=== PATIENT | female | born 1950 | race Caucasian/White ===

== ENCOUNTER → 2018-01-15 | Outpatient (CLI) | payer MEDICARE | END | disposition home or self-care (01) | LOC: LABWHC1 16:34 | PROVIDERS: ATTEND Orthopaedic Surgery | DX: Z01.812 Encounter for preprocedural laboratory examination (principal) | CPT/HCPCS: 87070 ==

== ENCOUNTER → 2018-01-22 | Outpatient (CLI) | payer MEDICARE ==
[2018-01-22 10:00] LABS: INR 1.1 (<1.2); Partial Thromboplastin Time 23.5 sec (22.0-30.0); Prothrombin Time 10.4 sec (9.0-12.0)
== END | disposition home or self-care (01) ==
LOC: LABPAT 08:49
PROVIDERS: ATTEND Orthopaedic Surgery
DX: Z01.812 Encounter for preprocedural laboratory examination (principal)
CPT/HCPCS: 36415; 85610; 85730

== ENCOUNTER → 2018-01-23 | Outpatient (CLI) | payer MEDICARE ==
[2018-01-23 10:13] LABS: Appearance,Urine Clear (Clear); Bilirubin,Urine Negative (Negative); Blood,Urine Negative (Negative); Calcium Oxalate Crystals,Urine Few /hpf; Color,Urine Yellow; Glucose,Urine (UA) Negative (Negative); Ketones,Urine Negative (Negative); Leukocyte Esterase,Urine Moderate (Negative); Mucus,Urine Rare /hpf; Nitrite,Urine Negative (Negative); PH, Urine 5.5 (5.0-8.0); Protein,Urine Negative (Negative); Specific Gravity,Urine 1.015 (1.001-1.035); Squamous Epithelial Cell,Urine 1 /hpf (0-4); Urobilinogen,Urine <2.0 mg/dL (<2.0); WBC,Urine 18 /hpf (0-5)
== END | disposition home or self-care (01) ==
LOC: LABPAT 09:33
PROVIDERS: ATTEND Orthopaedic Surgery
DX: Z01.812 Encounter for preprocedural laboratory examination (principal)
CPT/HCPCS: 81001

== ENCOUNTER 2018-02-02 05:56 | Inpatient (IN) | payer MEDICARE ==
[2018-01-28 09:05] VITALS: BMI 24.7
[~2018-02-02 05:56] MED LIST: ACETAMINOPHEN TAB 500 MG TAB PO ONE; DEXAMETHASONE SOD PHOSPHATE 10 MG/ML 1 ML VIAL IV ONE; HYDROmorphone 0.5 MG/0.5 ML SYRINGE IVP PRN; MELOXICAM 7.5 MG TAB PO ONE; ONDANSETRON 4 MG/2 ML VIAL IVP ONE; TRANEXAMIC ACID 1,000 MG in SODIUM CHLORIDE 0.9% 50 ML IVPB ONE; ceFAZolin IN SWFI 2 GM/20 ML SYRINGE IVP ONE
[2018-02-02] MEDS ORDERED: ROPIVACAINE 246.25 MG, EPINEPHrine 0.5 MG, KETOROLAC 30 MG, cloNIDine HCL/PF 80 MCG, WA... MISCELLANE ONE ×5 (06:24)
[2018-02-02] MEDS: LACTATED RINGERS 1,000 ML IV SCH (06:26)
[2018-02-02] MEDS ORDERED: LIDOCAINE 1% 20 ML VIAL (10MG/ML) FOR IV START INTRADERMA ONE (06:27)
[2018-02-02] MEDS ORDERED: DIAZEPAM 5 MG TAB PO PRN ×2 (07:19)
[2018-02-02] MEDS ORDERED: NALOXONE 0.4 MG/ML 1 ML VIAL IV PRN (07:19)
[2018-02-02] MEDS ORDERED: ONDANSETRON 4 MG/2 ML VIAL IVP PRN (07:19)
[2018-02-02] MEDS ORDERED: hydrOXYzine PAMOATE 25 MG CAP PO PRN (07:19)
[2018-02-02] MEDS ORDERED: HYDROmorphone 0.5 MG/0.5 ML SYRINGE IVP PRN ×3 (07:19)
[2018-02-02] MEDS ORDERED: MAGNESIUM HYDROXIDE 2,400 MG/10 ML CUP PO PRN (07:19)
[2018-02-02] MEDS ORDERED: HYDROcodone/APAP 5-325MG 1 EACH TAB PO PRN ×2 (07:19)
[2018-02-02] MEDS ORDERED: LACTATED RINGERS 1,000 ML BAG IV ONE (07:31)
[2018-02-02] MEDS ORDERED: SODIUM CHLORIDE 0.9% 100 ML BAG ONE (07:31)
[2018-02-02] MEDS ORDERED: fentaNYL (PF) 50 MCG/ML 2 ML AMP ONE (07:31)
[2018-02-02] MEDS ORDERED: MIDAZOLAM 2 MG/2 ML VIAL ONE (07:31)
[2018-02-02] MEDS ORDERED: HEPARIN SODIUM,PORCINE 10,000 UNIT/ML 1 ML VIAL ONE (07:31)
[2018-02-02] MEDS ORDERED: TRANEXAMIC ACID 1,000 MG/10 ML VIAL ONE (07:31)
[2018-02-02] MEDS ORDERED: ceFAZolin 3,000 MG in SODIUM CHLORIDE 0.9% IRRIGATIO 3,000 ML IRRIGATION ONE (08:10)
[2018-02-02] MEDS ORDERED: LACTATED RINGERS 1,000 ML IV ONE (08:30)
--- NOTE | 2018-02-02 09:00 | P.OP ---
Date of Procedure: 02/02/18 Preoperative Diagnosis: Severe osteoarthritis right hip Postoperative Diagnosis: Severe osteoarthritis right hip Procedure(s) Performed: Right total hip arthroplasty with a direct anterior approach Implants: Kaba and nephew Polarstem size 1 standard Kaba [employer] Nephew R3, 3 hole acetabular shell, 48 mm Kaba [employer] Nephew reflection 6.5 mm cancellus screw, 20 mm 2 Kaba [employer] Nephew R3, XLPE 20 acetabular liner Kaba [employer] Nephew Oxinium femoral head 32 m, +0 All components were press-fit. The articulation is Oxinium on polyethylene. Anesthesia: spinal Surgeon: Enrique Johnston Reactor Kettle Operator #1: Karlee Puga Estimated Blood Loss (ml): 100 Pathology: other (femoral head) Condition: stable Disposition: PACU Indications for Procedure: After failure of conservative treatment we discussed the surgical and nonsurgical treatment options at length. Patient wishes to proceed with a total hip arthroplasty with a direct anterior approach. Complications specific to this procedure were discussed at length, including but not limited to infection, leg length discrepancy, dislocation, and nerve injury. Patient is aware of all these complications and informed consent was obtained Operative Findings: The operative findings are consistent with severe osteoarthritis of the right hip Description of Procedure: Patient was seen and evaluated in the preoperative area, consent was reviewed, and the surgical site was marked with a skin marker. Patient was then brought to the operating room and given prophylactic antibiotics intravenously. 1 g of Tranexamic acid was also given. A spinal anesthetic was administered by the anesthesia department. The patient was then placed on the Stockett table with the bony prominences well-padded. The hip area was then prepped and draped in usual sterile fashion. A universal timeout was then performed, which confirmed the patient's name, surgical site, ALLERGIES, and procedure being performed. Next the incision site was located at 1 cm distal and 1 cm lateral to the anterior superior iliac spine. The skin and subcutaneous tissues were sharply incised. Incision was carefully dissected down to the fascia overlying the tensor fascia zeferino muscle. This fascia was then incised in line with the incision. Next, using blunt finger dissection, the tensor fascia zeferino muscle was dissected off its investing fascia. The muscle was then carefully retracted laterally with a cobra retractor over the lateral neck of the femur. Next, the circumflex vessels were identified and cauterized using the AquaMantis device. The anterior hip capsule was then exposed. The capsule was then opened and an inverted T fashion. Cobra retractors were then placed intracapsularly. The proximal femur was then visualized. The femoral neck was then osteotomized appropriate level above the lesser trochanter. Small amount of traction was placed with the Stockett table. A small wedge of bone was then removed from the remaining femoral head. Next, using a corkscrew femoral head was easily removed from the acetabulum. On gross visual inspection, the femoral head had complete loss of articular cartilage in multiple periarticular osteophytes. Attention was then turned to the acetabulum. the acetabulum was exposed and any remaining labrum was excised. Sequential reaming of the acetabulum was performed using fluoroscopic guidance. When the appropriate size was reached, a trial was then placed. The position and fit of the trial was checked with fluoroscopy. The trial was then removed. Then, using fluoroscopic guidance, the final implant was impacted at 20 of anteversion and 40 of abduction, and fully seated in the acetabulum. 2 screws were then placed in the acetabulum. Again fluoroscopy was used to check position of the screws. Next, the liner was then impacted, with a 20 elevated liner located in the anterior superior quadrant. Component locking was confirmed. Attention was then directed to the femur. With the aid of the Stockett table, the femur was externally rotated to approximately 130, extended, and abducted under the opposite leg. A side hook was then placed under the proximal femur, and the side hook elevator was used to elevate the proximal femur. Retractors were then placed. A capsular release was performed, as well as a release of the conjoined tendon, which afforded excellent visualization of the proximal femur. Next, a box osteotome was used to lateralize the proximal femur. A rounder hand was then used to locate the femoral canal. Sequential broaching was then performed with appropriate size which afforded excellent fixation in the proximal femur. A trial was then placed with appropriate head and neck, and the hip was gently reduced with the aid of the Stockett table. Fluoroscopy was then used to check position of the components, as well as to ensure equal leg lengths. The hip was then gently dislocated and the trials were then removed. Final implants were then impacted and the hip was again reduced. Final fluoroscopic x-rays confirmed that the components were in anatomic position, as well as equal leg lengths. The hip was also taken through range of motion, and found to be stable. The hip was then copiously irrigated with antibiotic solution with pulsatile lavage. The hip was then irrigated with Irrisept solution. The soft tissues were then injected with a ropivacaine solution, which consisted of 246.25 mg of ropivacaine, 0.5 mg of epinephrine, 30 mg of Toradol, 80 g of clonidine, and 48.45 mL of sterile water, for a total of 100 mL of fluid injected. A second dose of 1 g of Tranexamic acid was also given. the fascia was then closed with 2-0 strata fix suture. The subcutaneous tissue was closed with 3-0 Vicryl. The subcuticular tissue was closed with 3-0 strata fix suture. The skin was then closed with Dermabond glue and a sterile silver dressing. The patient was then transferred to the recovery room in stable condition. The loan officer assistant JUSTINA Brooks was required due to the complexity of surgery, and the need for skilled surgical services manager for positioning, draping, exposure, retraction, and closure of the wound.
--- NOTE | 2018-02-02 09:34 | FL ---
EXAMINATION TYPE: FL guidance operating room, XR Hip Limited RT DATE OF EXAM: 02/02/2018 COMPARISON: NONE HISTORY: 67 year-old female right hip anterior placement FINDINGS: Intraoperative fluoroscopy during a total right hip thoracoplasty. Fluoroscopy time of 56 seconds was used during anterior right hip replacement. 2 image/s document/s the procedure. IMPRESSION: Intraoperative fluoroscopy as above.
--- NOTE | 2018-02-02 12:02 | P.CONS ---
History of Present Illness - Reason for Consult Recommendations regarding anti-hypertensive medications - History of Present Illness 67-year-old pleasant female admitted for right hip arthroplasty patient successfully underwent surgery did not pass gas yet patient is postoperative day 0. Patient denied any significant pain in the hip area patient is on atenolol at home. Patient did take her medication today patient is bit hypotensive. Patient is also sinus bradycardic mildly asymptomatic at this time. Ideally if blood pressure is okay patient will benefit from beta munir since her heart rate is low normal and low blood pressure I do not believe even beta munir is recommended at this time atenolol will be held and patient will be monitored. Patient is otherwise clinically doing well denied any dysuria denied any cough runny nose. Review of Systems REVIEW OF SYSTEMS: CONSTITUTIONAL: No fever, no malaise, no fatigue. HEENT: No recent visual problems or hearing problems. Denied any sore throat. CARDIOVASCULAR: No chest pain, orthopnea, PND, no palpitations, no syncope. PULMONARY: No shortness of breath, no cough, no hemoptysis. GASTROINTESTINAL: No diarrhea, no nausea, no vomiting, no abdominal pain. Normoactive bowel sounds. NEUROLOGICAL: No headaches, no weakness, no numbness. HEMATOLOGICAL: Denies any bleeding or petechiae. GENITOURINARY: Denies any burning micturition, frequency, or urgency. MUSCULOSKELETAL/RHEUMATOLOGICAL: Denies any joint pain, swelling, or any muscle pain. ENDOCRINE: Denies any polyuria or polydipsia. The rest of the 14-point review of systems is negative. Past Medical History Past Medical History: Hypertension Additional Past Medical History / Comment(s): hx kidney stones, USING CRUTCHES TO WALK, STATES "MY HIP POPS OUT ANYTIME I SIT" History of Any Multi-Drug Resistant Organisms: None Reported Past Surgical History: Tubal Ligation Additional Past Surgical History / Comment(s): rectal spincterectomy Past Anesthesia/Blood Transfusion Reactions: No Reported Reaction Additional Psychological History / Comment(s): occas. difficulty falling asleep uses Xanax for Smoking Status: Never smoker Past Alcohol Use History: Occasional Past Drug Use History: None Reported - Past Family History Mother Family Medical History: No Reported History Medications and Allergies Home Medications Medication Instructions Recorded Confirmed Type ALPRAZolam [Xanax] 0.25 mg PO Q8HR PRN 01/28/18 02/02/18 History Acetaminophen-Codeine 300-30mg 1 - 2 tab PO Q4-6H PRN 01/28/18 02/02/18 History [Tylenol w/codeine #3] Atenolol 25 mg PO QAM 01/28/18 02/02/18 History Multivit-Min/Iron/Folic/Lutein 1 tab PO DAILY 01/28/18 02/02/18 History [Centrum Silver Women Tablet] Allergies Allergy/AdvReac Type Severity Reaction Status Date / Time hydrocodone [From Vicodin] AdvReac Severe Nausea & Verified 02/02/18 08:56 Vomiting Physical Exam Vitals: Vital Signs Temp Pulse Resp BP Pulse Ox 02/02/18 10:00 53 L 18 101/55 99 02/02/18 09:46 56 L 18 96/56 99 02/02/18 09:31 58 L 18 105/58 97 02/02/18 09:15 58 L 13 103/59 97 02/02/18 09:11 97.6 F 59 L 13 101/56 97 02/02/18 06:19 97.4 F L 57 L 16 120/58 98 Intake and Output 02/01/18 02/02/18 02/02/18 22:59 06:59 14:59 Intake Total 150 1251 Output Total 100 Balance 150 1151 Intake: IV 150 1251 Output: Estimated Blood Loss 100 Other: Weight 71.668 kg PHYSICAL EXAMINATION: GENERAL: The patient is alert and oriented x3, not in any acute distress. Well developed, well nourished. HEENT: Pupils are round and equally reacting to light. EOMI. No scleral icterus. No conjunctival pallor. Normocephalic, atraumatic. No pharyngeal erythema. No thyromegaly. CARDIOVASCULAR: S1 and S2 present. No murmurs, rubs, or gallops. PULMONARY: Chest is clear to auscultation, no wheezing or crackles. ABDOMEN: Soft, nontender, nondistended, normoactive bowel sounds. No palpable organomegaly. MUSCULOSKELETAL: No joint swelling or deformity. EXTREMITIES: Deferred to orthopedic surgery NEUROLOGICAL: Gross neurological examination did not reveal any focal deficits. SKIN: No rashes. Assessment and Plan Plan: -Hypertension: Management as mentioned above hold off on antidepressant medications because of above-mentioned reasons patient does have expected perioperative hypotension -Right hip arthroplasty: Pain management and DVT prophylaxis as per primary service -Mild sinus bradycardia with asymptomatic secondary to atenolol Anxiety disorder
[2018-02-02] MEDS: ceFAZolin IN SWFI 2 GM/20 ML SYRINGE IVP SCH ×2 (15:36→23:14)
[2018-02-02] MEDS: SODIUM CHLORIDE 0.9% 1,000 ML IV SCH (17:50)
[2018-02-02] MEDS ORDERED: traMADol 50 MG TAB PO PRN (18:38)
[2018-02-02] MEDS: SENNOSIDES-DOCUSATE SODIUM 1 EACH TAB PO SCH (21:04)
[2018-02-02] MEDS: ASPIRIN 325 MG TAB PO SCH (21:04)
[2018-02-03] MEDS: SODIUM CHLORIDE 0.9% 1,000 ML IV SCH ×2 (01:30→15:34)
[2018-02-03] MEDS: LACTATED RINGERS 1,000 ML IV SCH (01:32)
[2018-02-03 07:43] LABS: Basophils % (A) 0 %; Eosinophils % (A) 0 %; HCT 33.4 % (34.0-46.0); HGB 11.1 gm/dL (11.4-16.0); Lymphocytes # (A) 1.5 k/uL (1.0-4.8); Lymphocytes % (A) 14 %; MCH 29.8 pg (25.0-35.0); MCHC 33.2 g/dL (31.0-37.0); MCV 89.8 fL (80.0-100.0); Mean Platelet Volume 6.9; Monocytes # (A) 0.6 k/uL (0-1.0); Monocytes % (A) 5 %; Neutrophils # (A) 8.6 k/uL (1.3-7.7); Neutrophils % (A) 80 %; Platelet Count 218 k/uL (150-450); RBC 3.72 m/uL (3.80-5.40); WBC 10.9 k/uL (3.8-10.6)
[2018-02-03] MEDS: ASPIRIN 325 MG TAB PO SCH ×2 (09:01→21:35)
[2018-02-03] MEDS: MELOXICAM 7.5 MG TAB PO SCH (09:01)
--- NOTE | 2018-02-03 09:25 | P.PN ---
Subjective Progress Note Date: 02/03/18 This is a 67-year-old female who is status post right total hip arthroplasty. This is postoperative day #1. Patient is seen and evaluated at bedside with Dr. Enrique Johnston. Patient states that her pain is under control today. Patient does complain of numbness and weakness to the right lower extremity. Patient states that she has been up and walking, but she cannot put weight on the right lower extremity. Patient denies any history of back surgery. Patient denies any fever/chills, abdominal pain, shortness of breath or chest pain. Objective - Vital Signs Vital signs: Vital Signs Temp 97.9 F 02/03/18 07:20 Pulse 66 02/03/18 07:20 Resp 16 02/03/18 07:20 BP 139/70 02/03/18 07:20 Pulse Ox 99 02/03/18 07:20 Intake & Output 02/02/18 02/03/18 02/03/18 18:59 06:59 18:59 Intake Total 1646 650 Output Total 700 Balance 946 650 Weight 71.668 kg Intake: IV 1251 Intake, IV Titration 195 650 Amount Sodium Chloride 0.9% 1, 195 650 000 ml @ 65 mls/hr IV . [id number] [facility] Rx#:[id number] Oral 200 Output: Urine 600 Estimated Blood Loss 100 Other: Voiding Method Bedside Commode # Voids 1 - Exam Vital signs are stable. Patient is in no acute distress and is alert and oriented 3. Calf is soft and nontender to palpation. Dressing is clean, dry, and intact. Patient has numbness in the first dorsal webspace of the right foot. Patient can sense pressure when palpating the remainder of the right foot. Patient has weakness with dorsiflexion of the right foot and weakness of EHL. Patient is able to extend and flex the right knee and hip. Neurovascular status and circulatory status are intact. - Labs CBC & Chem 7: 02/03/18 07:08 Labs: Abnormal Lab Results - Last 24 Hours (Table) 02/03/18 Range/Units 07:08 WBC 10.9 H (3.8-10.6) k/uL RBC 3.72 L (3.80-5.40) m/uL Hgb 11.1 L (11.4-16.0) gm/dL Hct 33.4 L (34.0-46.0) % Neutrophils # 8.6 H (1.3-7.7) k/uL Assessment and Plan (1) Primary osteoarthritis of right hip Current Visit: Yes Status: Acute Code(s): M16.11 - UNILATERAL PRIMARY OSTEOARTHRITIS, RIGHT HIP SNOMED Code(s): 724436810 (2) S/P total hip arthroplasty Current Visit: Yes Status: Acute Code(s): Z96.649 - PRESENCE OF UNSPECIFIED ARTIFICIAL HIP JOINT SNOMED Code(s): 058110138503 (3) Foot drop, right Current Visit: Yes Status: Acute Code(s): M21.371 - FOOT DROP, RIGHT FOOT SNOMED Code(s): 2916966 Plan: Continue routine postop care. Continue antocoagulation. Weightbearing as tolerated with a walker. Will closely monitor symptoms of foot drop. Patient is to work on range of motion of the right foot and ankle. Leave dressing in place for 10 days. Possible discharge home in the next 1-2 days.
--- NOTE | 2018-02-03 12:59 | P.PN ---
Subjective Patient is still having some pain in the right knee. It doesn't look like patient will require atenolol upon discharge her blood pressure and heart rate is well controlled at this point of time and recommend to discontinue this medication until patient was evaluated by PCP. Patient has mild leukocytosis reactive in nature from surgery. Constitutional: Denied any fatigue denied any fever. Cardio vascular: denied any chest pain, palpitations Gastrointestinal denied any nausea vomiting Pulmonary: Denied any shortness of breath cough Neurologic denied any new focal deficits Objective - Vital Signs Vital signs: Vital Signs Temp 97.9 F 02/03/18 07:20 Pulse 66 02/03/18 07:20 Resp 16 02/03/18 07:20 BP 139/70 02/03/18 07:20 Pulse Ox 99 02/03/18 07:20 Intake & Output 02/02/18 02/03/18 02/03/18 18:59 06:59 18:59 Intake Total 1646 650 Output Total 700 Balance 946 650 Weight 71.668 kg Intake: IV 1251 Intake, IV Titration 195 650 Amount Sodium Chloride 0.9% 1, 195 650 000 ml @ 65 mls/hr IV . [id number] [facility] Rx#:[id number] Oral 200 Output: Urine 600 Estimated Blood Loss 100 Other: Voiding Method Bedside Commode # Voids 1 - Exam PHYSICAL EXAMINATION: GENERAL: The patient is alert and oriented x3, not in any acute distress. Well developed, well nourished. HEENT: Pupils are round and equally reacting to light. EOMI. No scleral icterus. No conjunctival pallor. Normocephalic, atraumatic. No pharyngeal erythema. No thyromegaly. CARDIOVASCULAR: S1 and S2 present. No murmurs, rubs, or gallops. PULMONARY: Chest is clear to auscultation, no wheezing or crackles. ABDOMEN: Soft, nontender, nondistended, normoactive bowel sounds. No palpable organomegaly. MUSCULOSKELETAL: No joint swelling or deformity. EXTREMITIES: Deferred to orthopedic surgery NEUROLOGICAL: Gross neurological examination did not reveal any focal deficits. SKIN: No rashes. - Labs CBC & Chem 7: 02/03/18 07:08 Labs: Abnormal Lab Results - Last 24 Hours (Table) 02/03/18 Range/Units 07:08 WBC 10.9 H (3.8-10.6) k/uL RBC 3.72 L (3.80-5.40) m/uL Hgb 11.1 L (11.4-16.0) gm/dL Hct 33.4 L (34.0-46.0) % Neutrophils # 8.6 H (1.3-7.7) k/uL Assessment and Plan Plan: -Hypertension: Patient may not require atenolol upon discharge. -Leukocytosis reactive in nature without any signs or symptoms of infection -Right hip arthroplasty: Pain management and DVT prophylaxis as per primary service -Mild sinus bradycardia with asymptomatic secondary to atenolol Anxiety disorder
[2018-02-03] MEDS: predniSONE 20 MG TAB PO SCH (15:36)
[2018-02-03 17:10] LABS: Glucose,Whole Blood 189 mg/dL (75-99)
[2018-02-03] MEDS ORDERED: ACETAMINOPHEN TAB 325 MG TAB PO PRN (19:23)
[2018-02-03 20:18] LABS: Glucose,Whole Blood 258 mg/dL (75-99)
[2018-02-03] MEDS ORDERED: INSULIN ASPART 100 UNIT/ML 1 ML 10 ML VIAL SQ STA (21:29)
[2018-02-03] MEDS: INSULIN ASPART 100 UNIT/ML 1 ML 10 ML VIAL SQ SCH (21:32)
[2018-02-03] MEDS: SENNOSIDES-DOCUSATE SODIUM 1 EACH TAB PO SCH (21:33)
[2018-02-03 23:31] LABS: Glucose,Whole Blood 238 mg/dL (75-99)
[2018-02-04 01:53] VITALS: RESP 16; TEMP 98.1
[2018-02-04 02:10] LABS: Hemoglobin A1C 6.6 % (4.0-6.0)
[2018-02-04] MEDS: LACTATED RINGERS 1,000 ML IV SCH (04:41)
[2018-02-04] MEDS: SODIUM CHLORIDE 0.9% 1,000 ML IV SCH (04:42)
[2018-02-04 07:03] LABS: Glucose,Whole Blood 163 mg/dL (75-99)
[2018-02-04 07:14] VITALS: BP 138/80; PULSE 80
[2018-02-04] MEDS: INSULIN ASPART 100 UNIT/ML 1 ML 10 ML VIAL SQ SCH ×2 (08:04→13:23)
[2018-02-04] MEDS: predniSONE 20 MG TAB PO SCH (08:05)
[2018-02-04] MEDS: MELOXICAM 7.5 MG TAB PO SCH (08:05)
[2018-02-04] MEDS: ASPIRIN 325 MG TAB PO SCH (08:05)
--- NOTE | 2018-02-04 08:32 | P.DS ---
Providers Date of admission: 02/02/18 05:56 Expected date of discharge: 02/04/18 Attending physician: Enrique Johnston Consults: 02/02/18 07:19 Consult Physician Routine Consulting Provider: Shimon Najera Consult Reason/Comments: medical management Do you want consulting provider notified?: Yes 02/02/18 09:23 Consult Physician Routine Consulting Provider: Trace Temple Consult Reason/Comments: medical management Do you want consulting provider notified?: Yes Primary care physician: Shimon Najera - Discharge Diagnosis(es) (1) Primary osteoarthritis of right hip Current Visit: Yes Status: Acute (2) S/P total hip arthroplasty Current Visit: Yes Status: Acute (3) Foot drop, right Current Visit: Yes Status: Acute Hospital Course: This is a 67-year-old female with known history of degenerative arthritis of the right hip. The patient presents for evaluation. After discussion and consideration patient elects to proceed with total hip arthroplasty. The patient is seen preoperatively by Dr. Johnston and medically cleared for surgery by their primary care physician. Patient is admitted to [facility] on 02/02/2018 for total hip arthroplasty. The procedures performed without complication. Patient did develop symptoms of foot drop postoperatively and this is being treated with an AFO and physical therapy. Otherwise, the patient is doing well postoperatively. Labs and vital signs are stable on day of discharge. On day of discharge patient's hip incision is healing well. There is minimal erythema. There is no drainage noted at this time. There is minimal soft tissue swelling to the hip and thigh. Patient has weakness with plantar flexion of the right foot and EHL. Patient is able to flex and extend at the right hip and right knee joints.. Patient has some decreased sensation to the right first dorsal webspace. Otherwise, neurovascular status to the right lower extremity is intact. Patient is discharged home in good condition. Please see med rec for accurate list of home medications. Plan - Discharge Summary Discharge Rx Participant: No New Discharge Prescriptions: New Aspirin 325 mg PO BID #60 tab Sennosides [Senokot] 1 tab PO BID #60 tablet traMADol HCl [Ultram] 50 mg PO Q6H PRN #60 tab PRN Reason: Pain predniSONE 20 mg PO DAILY 10 Days #18 tab Discontinued Atenolol 25 mg PO QAM No Action Acetaminophen-Codeine 300-30mg [Tylenol w/codeine #3] 1 - 2 tab PO Q4-6H PRN PRN Reason: Pain ALPRAZolam [Xanax] 0.25 mg PO Q8HR PRN PRN Reason: anxiety/sleep Multivit-Min/Iron/Folic/Lutein [Centrum Silver Women Tablet] 1 tab PO DAILY Discharge Medication List ALPRAZolam [Xanax] 0.25 mg PO Q8HR PRN 01/28/18 [History] Acetaminophen-Codeine 300-30mg [Tylenol w/codeine #3] 1 - 2 tab PO Q4-6H PRN [History] Multivit-Min/Iron/Folic/Lutein [Centrum Silver Women Tablet] 1 tab PO DAILY [History] Aspirin 325 mg PO BID #60 tab 02/04/18 [Rx] Sennosides [Senokot] 1 tab PO BID #60 tablet 02/04/18 [Rx] predniSONE 20 mg PO DAILY 10 Days #18 tab 02/04/18 [Rx] traMADol HCl [Ultram] 50 mg PO Q6H PRN #60 tab 02/04/18 [Rx] Follow up Appointment(s)/Referral(s): [facility], [NON-STAFF] - Enrique Johnston DO [Doctor of Osteopathic Medicine] - 02/16/18 9:00 am Shimon Najera DO [Primary Care Provider] - 1 Week Activity/Diet/Wound Care/Special Instructions: Weightbearing as tolerated with walker and AFO. Please finish entire course of prednisone. Leave dressing intact. Dressing may be removed by home care nurse in 10 days. May shower with dressing on. Follow-up with [facility] in 2 weeks, please call with any questions or concerns [phone] Discharge Disposition: HOME WITH HOME HEALTH SERVICES
[2018-02-04] MEDS ORDERED: predniSONE 20 MG TAB PO SCH (09:00)
[2018-02-04 11:25] LABS: Glucose,Whole Blood 163 mg/dL (75-99)
--- NOTE | 2018-02-04 11:34 | P.PN ---
Subjective Patient is still having some pain in the right knee. It doesn't look like patient will require atenolol upon discharge her blood pressure and heart rate is well controlled at this point of time and recommend to discontinue this medication until patient was evaluated by PCP. Patient has mild leukocytosis reactive in nature from surgery. 02/04/2018 Patient apparently had low-grade fever which was not documented here patient had a fever of 100F, will obtain EEG and a chest x-ray that negative patient will be discharged as its only 1 brief episode of low-grade fever and do not believe will need to do blood cultures at this time. Constitutional: Denied any fatigue denied any fever. Cardio vascular: denied any chest pain, palpitations Gastrointestinal denied any nausea vomiting Pulmonary: Denied any shortness of breath cough Neurologic denied any new focal deficits Objective - Vital Signs Vital signs: Vital Signs Temp 98.1 F 02/04/18 06:45 Pulse 80 02/04/18 06:45 Resp 16 02/04/18 01:50 BP 138/80 02/04/18 06:45 Pulse Ox 96 02/04/18 06:45 Intake & Output 02/03/18 02/04/18 02/04/18 18:59 06:59 18:59 Intake Total 305 1130 360 Balance 305 1130 360 Intake: Intake, IV Titration 65 130 Amount Sodium Chloride 0.9% 1, 65 130 000 ml @ 65 mls/hr IV . [id number] [facility] Rx#:[id number] Oral 240 1000 360 Other: Voiding Method Toilet Toilet # Voids 1 1 1 # Bowel Movements 1 - Exam PHYSICAL EXAMINATION: GENERAL: The patient is alert and oriented x3, not in any acute distress. Well developed, well nourished. HEENT: Pupils are round and equally reacting to light. EOMI. No scleral icterus. No conjunctival pallor. Normocephalic, atraumatic. No pharyngeal erythema. No thyromegaly. CARDIOVASCULAR: S1 and S2 present. No murmurs, rubs, or gallops. PULMONARY: Chest is clear to auscultation, no wheezing or crackles. ABDOMEN: Soft, nontender, nondistended, normoactive bowel sounds. No palpable organomegaly. MUSCULOSKELETAL: No joint swelling or deformity. EXTREMITIES: Deferred to orthopedic surgery NEUROLOGICAL: Gross neurological examination did not reveal any focal deficits. SKIN: No rashes. - Labs CBC & Chem 7: 02/03/18 07:08 Labs: Abnormal Lab Results - Last 24 Hours (Table) 02/03/18 02/03/18 02/03/18 Range/Units 07:08 17:06 20:16 POC Glucose (mg/dL) 189 H 258 H (75-99) mg/dL Hemoglobin A1c 6.6 H (4.0-6.0) % 02/03/18 02/04/18 02/04/18 Range/Units 23:28 07:01 11:23 POC Glucose (mg/dL) 238 H 163 H 163 H (75-99) mg/dL Hemoglobin A1c (4.0-6.0) % Assessment and Plan Plan: -Hypertension: I do not think patient will require a atenolol for hypertension as her blood pressure remains stable and heart rate remains stable during the close of this hospitalization -Low-grade fever: Further management as mentioned above -Leukocytosis reactive in nature without any signs or symptoms of infection -Right hip arthroplasty: Pain management and DVT prophylaxis as per primary service -Mild sinus bradycardia with asymptomatic secondary to atenolol Anxiety disorder
[2018-02-04 12:21] LABS: Appearance,Urine Clear (Clear); Bilirubin,Urine Negative (Negative); Blood,Urine Negative (Negative); Color,Urine Light Yellow; Glucose,Urine (UA) Negative (Negative); Ketones,Urine Negative (Negative); Leukocyte Esterase,Urine Negative (Negative); Nitrite,Urine Negative (Negative); PH, Urine 5.5 (5.0-8.0); Protein,Urine Negative (Negative); Specific Gravity,Urine 1.006 (1.001-1.035); Urobilinogen,Urine <2.0 mg/dL (<2.0)
--- NOTE | 2018-02-04 14:15 | XR ---
EXAMINATION TYPE: XR chest 2V DATE OF EXAM: 02/04/2018 COMPARISON: NONE INDICATION: Fever, pneumonia TECHNIQUE: Frontal and lateral views of the chest are obtained. FINDINGS: The heart size is normal. The pulmonary vasculature is normal. The lungs are clear. IMPRESSION: 1. No acute pulmonary process.
== END 2018-02-04 15:00 | disposition home health service (06) | DRG 470 ==
LOC: 2ORMAIN 05:56 → 3SUR 08:58
PROVIDERS: ADMIT Orthopaedic Surgery; ATTEND Orthopaedic Surgery
PROC: 0SR906A Replacement of Right Hip Joint with Oxidized Zirconium on Polyethylene Synthetic Substitute, Uncemented, Open Approach (ICD-10-PCS; principal; 2018-02-02 07:30)
DX: M16.11 Unilateral primary osteoarthritis, right hip (principal); I95.9 Hypotension, unspecified; M21.371 Foot drop, right foot; F41.9 Anxiety disorder, unspecified; D72.829 Elevated white blood cell count, unspecified; I10 Essential (primary) hypertension; Z98.51 Tubal ligation status; Z83.3 Family history of diabetes mellitus; Z83.1 Family history of other infectious and parasitic diseases; Z87.442 Personal history of urinary calculi; Z88.5 Allergy status to narcotic agent
CPT/HCPCS: 71046; 73501; 81003; 83036; 85025; 86850; 86900; 86901; 88300

== ENCOUNTER → 2019-10-18 | Outpatient (CLI) | payer MEDICARE ==
--- NOTE | 2019-10-18 11:27 | MM ---
Reason for exam: screening (asymptomatic). Last mammogram was performed 10 years and 4 months ago. History: Patient is postmenopausal. Physical Findings: A clinical breast exam by your physician is recommended on an annual basis and results should be correlated with mammographic findings. MG Screening Mammo w CAD Bilateral CC and MLO view(s) were taken. Prior study comparison: June 06, 2009, mammogram, performed at [facility]. May 11, 2009, mammogram, performed at [facility]. May 02, 2009, mammogram, performed at [facility]. There are scattered fibroglandular densities. Benign appearing bilateral calcifications. Left biopsy marker noted. No suspicious abnormality. Stable right upper outer quadrant focal asymmetry back to 2008. No significant changes when compared with prior studies. ASSESSMENT: Benign, BI-RAD 2 RECOMMENDATION: Routine screening mammogram of both breasts in 1 year.
== END | disposition home or self-care (01) ==
LOC: RADMAMWWP 09:48
PROVIDERS: ATTEND Internal Medicine
DX: Z12.31 Encounter for screening mammogram for malignant neoplasm of breast (principal)
CPT/HCPCS: 77067

== ENCOUNTER → 2019-10-21 | Outpatient (CLI) | payer MEDICARE ==
--- NOTE | 2019-10-21 12:46 | BD ---
EXAMINATION TYPE: Axial Bone Density DATE OF EXAM: 10/21/2019 COMPARISON: NONE CLINICAL HISTORY: 69 YR OLD FEMALE.....ICD-10 CODE: M81.0 OSTEOPOROSIS Height: 65 Weight: 173 FRAX RISK QUESTIONS: History of Fracture in Adulthood: YES Secondary Osteoporosis: YES 1. Type 1 Diabetes: YES RISK FACTORS HISTORY OF: RT TIB FIB > 50 YRS OLD Surgery to TOTAL RT HIP ABOUT 2018 Postmenopausal woman: YES, ABOUT AGE 56 Hyperparathyroidism: NO Adrenal Insufficiency: NO MEDICATIONS: Additional Medications: BP MEDS, XANAX PRN, ORAL DIABETIC MEDS AND INSULIN, Additional History: DIABETIC, HYPERTENSION, EXAM MEASUREMENTS: Bone mineral densitometry was performed using the Revert System. Bone mineral density as measured about the Lumbar spine is: ----- L1-L4(G/cm2): 1.284 T Score Values are as follows: ----- L1: 0.2 ----- L2: 1.0 ----- L3: 1.3 ----- L4: 0.8 ----- L1-L4: 0.9 Bone mineral density THIS IS HER FIRST DEXA SCAN......BASELINE STUDY Bone mineral density about the L hip (g/cm2): 0.953 T Score values are as follows: -----L Neck: -0.9 -----L Total: -0.4 Bone mineral density BASELINE STUDY.....HX OR RT TOTAL HIP....ONLY LT HIP SCANNED FRAX%s: THERE IS A 13.4% CHANCE FOR A MAJOR OSTEOPOROTIC FX AND A 1.1% FOR HIP....PROBABILITY FOR F X IN 10 YRS TIME IMPRESSION: Normal (Values between +1 and -1 indicate normal bone mass). Consider repeating this study in 5 year s or sooner if there is some new clinical indication. NOTE: T-SCORE=SD OF THE YOUNG ADULT MEAN.
== END | disposition home or self-care (01) ==
LOC: RADBDWWP 08:40
PROVIDERS: ATTEND Internal Medicine
DX: M81.0 Age-related osteoporosis without current pathological fracture (principal)
CPT/HCPCS: 77080

== ENCOUNTER 2020-03-18 10:10 | Emergency (ER) | payer MEDICARE ==
[2020-03-18 10:17] VITALS: RESP 18; TEMP 98.1
[2020-03-18] MEDS ORDERED: MORPHINE SULFATE 4 MG/ML SYRINGE IV STA (10:31)
[2020-03-18] MEDS ORDERED: ONDANSETRON 4 MG/2 ML VIAL IVP STA (10:31)
[2020-03-18] MEDS ORDERED: SODIUM CHLORIDE 0.9% 1,000 ML IV STA (10:31)
--- NOTE | 2020-03-18 10:31 | ED ---
Abdominal Pain HPI - General Chief Complaint: Abdominal Pain Stated Complaint: poss kidney stones Time Seen by Provider: 03/18/20 10:18 Source: patient Mode of arrival: wheelchair Limitations: no limitations - History of Present Illness Initial Comments: Patient is 61-year-old female with history of kidney stones presenting to emergency Department with a chief complaint of kidney stone. Patient states around 4 AM this morning she developed left flank pain with some radiation to the left lower back. Patient states the pain is sharp and constant. Patient states he feels like her previous kidney stone pain which occurred about 15 years ago. Patient states the pain was sudden onset. Denies any nausea or vomiting. He states no difficulty with urination. Denies any increased urgency frequency or dysuria. States she was recently diagnosed with diabetes and had 2 recent UTIs. Denies any night sweats fevers or chills. Denies any chest pain or shortness of breath. Denies any extremity weakness. Denies lightheadedness, dizziness, visual changes, headaches. Denies history of smoking or aortic aneurysms. - Related Data Home Medications Medication Instructions Recorded Confirmed Multivit-Min/Iron/Folic/Lutein 1 tab PO DAILY 01/28/18 03/18/20 [Centrum Silver Women Tablet] Aspirin 325 mg PO DAILY 03/18/20 03/18/20 Atenolol [Tenormin] 50 mg PO DAILY 03/18/20 03/18/20 Losartan Potassium [Cozaar] 25 mg PO DAILY 03/18/20 03/18/20 metFORMIN HCL [metFORMIN HCL ER] 500 mg PO BID 03/18/20 03/18/20 Previous Rx's Medication Instructions Recorded HYDROcodone/APAP 5-325MG [Carter 1 tab PO Q6HR PRN 3 Days #12 tab 03/18/20 5-325] Ondansetron Odt [Zofran Odt] 4 mg PO Q8HR PRN #14 tab 03/18/20 Allergies Allergy/AdvReac Type Severity Reaction Status Date / Time hydrocodone [From Vicodin] AdvReac Severe Nausea & Verified 03/18/20 11:09 Vomiting Review of Systems ROS Statement: Those systems with pertinent positive or pertinent negative responses have been documented in the HPI. ROS Other: All systems not noted in ROS Statement are negative. Past Medical History Past Medical History: Diabetes Mellitus, Hypertension Additional Past Medical History / Comment(s): hx kidney stones, USING CRUTCHES TO WALK, STATES "MY HIP POPS OUT ANYTIME I SIT" History of Any Multi-Drug Resistant Organisms: None Reported Past Surgical History: Tubal Ligation Additional Past Surgical History / Comment(s): rectal spincterectomy Past Anesthesia/Blood Transfusion Reactions: No Reported Reaction Past Psychological History: No Psychological Hx Reported Smoking Status: Never smoker Past Alcohol Use History: None Reported, Occasional Past Drug Use History: None Reported - Past Family History Mother Family Medical History: No Reported History General Exam Limitations: no limitations General appearance: alert, in no apparent distress Head exam: Present: atraumatic, normocephalic, normal inspection Eye exam: Present: normal appearance, PERRL, EOMI. Absent: scleral icterus, conjunctival injection, nystagmus Pupils: Present: normal accommodation ENT exam: Present: normal exam, normal oropharynx, mucous membranes moist, TM's normal bilaterally, normal external ear exam Neck exam: Present: normal inspection, full ROM. Absent: tenderness Respiratory exam: Present: normal lung sounds bilaterally. Absent: respiratory distress, wheezes, rales Cardiovascular Exam: Present: regular rate, normal rhythm, normal heart sounds GI/Abdominal exam: Present: soft, tenderness (Left flank pain.). Absent: distended, guarding, rebound, rigid, organomegaly, mass, bruit, pulsatile mass, hernia Extremities exam: Present: normal inspection, full ROM, normal capillary refill, other (+2 ulnar and radial pulses bilaterally. +2 dorsalis pedis and posterior tibials bilateral.). Absent: tenderness, pedal edema, joint swelling, calf tenderness Back exam: Present: normal inspection, full ROM, tenderness, CVA tenderness (L) Neurological exam: Present: alert, oriented X3, normal gait Psychiatric exam: Present: normal affect, normal mood Skin exam: Present: warm, dry, intact, normal color Course Vital Signs 03/18/20 03/18/20 10:14 11:17 Temperature 98.1 F Pulse Rate 53 L 65 Respiratory 18 18 Rate Blood Pressure 150/74 159/89 O2 Sat by Pulse 99 100 Oximetry Medical Decision Making - Medical Decision Making Patient is 61-year-old female presenting to emergency Department with chief complaint of abdominal pain. Exam patient has left flank and left CVA tenderness. She does have history of stones although the most recent kidney stone was approximately 15 years ago. CBC reveals mild leukocytosis of 11.6 K. CMP is unremarkable. UA reveals elevated red blood cells and moderate amounts of blood in the urine. No signs of urinary tract infection. CT of abdomen and pelvis reveals a 5.6 mm obstructing calculus in the left distal ureter. Moderate left-sided hydronephrosis. Patient was given analgesia and fluids in the ED. Patient will be discharged with Zofran and Carter. Patient advised about side effects of medication. Return parameters were thoroughly discussed the patient is a agreeable. She was advised to drink lots of fluids and follow with urology. Case discussed with physician. - Lab Data Result diagrams: 03/18/20 10:42 03/18/20 10:42 Lab Results 03/18/20 03/18/20 03/18/20 Range/Units 10:42 10:42 10:49 WBC 11.3 H (3.8-10.6) k/uL RBC 4.51 (3.80-5.40) m/uL Hgb 13.6 (11.4-16.0) gm/dL Hct 40.8 (34.0-46.0) % MCV 90.6 (80.0-100.0) fL MCH 30.1 (25.0-35.0) pg MCHC 33.2 (31.0-37.0) g/dL RDW 13.2 (11.5-15.5) % Plt Count 239 (150-450) k/uL Neutrophils % 80 % Lymphocytes % 14 % Monocytes % 3 % Eosinophils % 1 % Basophils % 0 % Neutrophils # 9.1 H (1.3-7.7) k/uL Lymphocytes # 1.6 (1.0-4.8) k/uL Monocytes # 0.4 (0-1.0) k/uL Eosinophils # 0.1 (0-0.7) k/uL Basophils # 0.1 (0-0.2) k/uL Sodium 138 (137-145) mmol/L Potassium 4.3 (3.5-5.1) mmol/L Chloride 105 (98-107) mmol/L Carbon Dioxide 23 (22-30) mmol/L Anion Gap 10 mmol/L BUN 18 H (7-17) mg/dL Creatinine 0.81 (0.52-1.04) mg/dL Est GFR (CKD-EPI)AfAm 87 (>60 ml/min/1.73 sqM) Est GFR (CKD-EPI)NonAf 75 (>60 ml/min/1.73 sqM) Glucose 233 H (74-99) mg/dL Calcium 9.4 (8.4-10.2) mg/dL Total Bilirubin 0.5 (0.2-1.3) mg/dL AST 25 (14-36) U/L ALT 28 (4-34) U/L Alkaline Phosphatase 112 (38-126) U/L Total Protein 7.5 (6.3-8.2) g/dL Albumin 4.4 (3.5-5.0) g/dL Lipase 43 (23-300) U/L Urine Color Yellow Urine Appearance Cloudy H (Clear) Urine pH 5.5 (5.0-8.0) Ur Specific [place] 1.024 (1.001-1.035) Urine Protein 1+ H (Negative) Urine Glucose (UA) Negative (Negative) Urine Ketones Trace H (Negative) Urine Blood Moderate H (Negative) Urine Nitrite Negative (Negative) Urine Bilirubin Negative (Negative) Urine Urobilinogen <2.0 (<2.0) mg/dL Ur Leukocyte Esterase Negative (Negative) Urine RBC 157 H (0-5) /hpf Urine WBC 5 (0-5) /hpf Ur Squamous Epith Cells 2 (0-4) /hpf Hyaline Casts 1 (0-2) /lpf Urine Mucus Few H (None) /hpf Disposition Clinical Impression: Left flank pain, Renal stone Disposition: HOME SELF-CARE Condition: Good Instructions (If sedation given, give patient instructions): Kidney Stones (ED) Additional Instructions: Take prescribed medication as directed. Follow-up with urology. Return to emergency department if symptoms worsen. Prescriptions: HYDROcodone/APAP 5-325MG [Carter 5-325] 1 tab PO Q6HR PRN 3 Days #12 tab PRN Reason: Pain Ondansetron Odt [Zofran Odt] 4 mg PO Q8HR PRN #14 tab PRN Reason: Nausea Is patient prescribed a controlled substance at d/c from ED?: No Referrals: Paige Morales MD [Primary Care Provider] - 1-2 days Joe Mukherjee MD [STAFF PHYSICIAN] - 1-2 days Time of Disposition: 12:46
[2020-03-18 10:55] LABS: Basophils # (A) 0.1 k/uL (0-0.2); Basophils % (A) 0 %; Eosinophils # (A) 0.1 k/uL (0-0.7); Eosinophils % (A) 1 %; HCT 40.8 % (34.0-46.0); HGB 13.6 gm/dL (11.4-16.0); Lymphocytes # (A) 1.6 k/uL (1.0-4.8); Lymphocytes % (A) 14 %; MCH 30.1 pg (25.0-35.0); MCHC 33.2 g/dL (31.0-37.0); MCV 90.6 fL (80.0-100.0); Mean Platelet Volume 7.8; Monocytes # (A) 0.4 k/uL (0-1.0); Monocytes % (A) 3 %; Neutrophils # (A) 9.1 k/uL (1.3-7.7); Neutrophils % (A) 80 %; Platelet Count 239 k/uL (150-450); RBC 4.51 m/uL (3.80-5.40); RDW 13.2 % (11.5-15.5); WBC 11.3 k/uL (3.8-10.6)
[2020-03-18 11:05] LABS: Albumin 4.4 g/dL (3.5-5.0); Calcium 9.4 mg/dL (8.4-10.2); Potassium 4.3 mmol/L (3.5-5.1); Total Bilirubin 0.5 mg/dL (0.2-1.3); Total Protein 7.5 g/dL (6.3-8.2)
[2020-03-18 11:23] LABS: Appearance,Urine Cloudy (Clear); Bilirubin,Urine Negative (Negative); Blood,Urine Moderate (Negative); Color,Urine Yellow; Glucose,Urine (UA) Negative (Negative); Hyaline Casts,Urine 1 /lpf (0-2); Ketones,Urine Trace (Negative); Leukocyte Esterase,Urine Negative (Negative); Mucus,Urine Few /hpf; Nitrite,Urine Negative (Negative); PH, Urine 5.5 (5.0-8.0); Protein,Urine 1+ (Negative); RBC,Urine 157 /hpf (0-5); Specific Gravity,Urine 1.024 (1.001-1.035); Squamous Epithelial Cell,Urine 2 /hpf (0-4); Urobilinogen,Urine <2.0 mg/dL (<2.0); WBC,Urine 5 /hpf (0-5)
[2020-03-18] MEDS ORDERED: HYDROmorphone 0.5 MG/0.5 ML SYRINGE IM STA (11:42)
--- NOTE | 2020-03-18 12:28 | CT ---
EXAMINATION TYPE: CT abdomen pelvis wo con DATE OF EXAM: 03/18/2020 COMPARISON: None HISTORY: Left flank pain CT DLP: 684.8 mGycm Examination of the solid and hollow viscera is limited given the lack of contrast. FINDINGS: LUNG BASES: No evidence for nodule. No evidence for infiltrate. LIVER/GB: The gallbladder is unremarkable. No space-occupying hepatic lesion. PANCREAS: No pancreatic mass identified. No inflammatory process seen. SPLEEN: No evidence for splenomegaly. No intrasplenic lesions seen. ADRENALS: No adrenal nodules identified. No evidence for thickening. KIDNEYS: 5.6 mm obstructing calculus distal left ureter approximately 6 cm from the UVJ. There is mod erate left-sided hydronephrosis identified. Left renal edema noted. Superimposed infection difficult to exclude. No additional calculi seen. No renal masses seen. BOWEL: Appendix has a normal appearance. No evidence of bowel obstruction. No inflammatory process. S igmoid diverticulosis without diverticulitis. Lymph nodes: No evidence for adenopathy greater than 1 cm. Abdominal aorta: Atheromatous changes seen. No evidence for aneurysm. Genital organs: No significant abnormality. Other: No significant abnormality. IMPRESSION: 5.6 mm obstructing calculus distal left ureter approximately 6 cm from the UVJ. There is moderate lef t-sided hydronephrosis identified. Left renal edema noted.
[2020-03-18 13:00] VITALS: BP 136/66; PULSE 86
== END 2020-03-18 12:58 | disposition home or self-care (01) ==
LOC: EC 10:10
DX: N13.2 Hydronephrosis with renal and ureteral calculous obstruction (principal); E11.9 Type 2 diabetes mellitus without complications; I10 Essential (primary) hypertension; Z79.84 Long term (current) use of oral hypoglycemic drugs; Z98.2 Presence of cerebrospinal fluid drainage device; Z79.899 Other long term (current) drug therapy; Z88.5 Allergy status to narcotic agent; Z88.6 Allergy status to analgesic agent
CPT/HCPCS: 36415; 80053; 83690; 85025; 81001; 74176; 99284; 96374; 96375; 96361; 96372; J2270; J2405; J1170

== ENCOUNTER → 2020-07-05 | Outpatient (CLI) | payer MEDICARE ==
--- NOTE | 2020-07-05 14:47 | US ---
EXAMINATION TYPE: US kidneys/renal and bladder DATE OF EXAM: 07/05/2020 COMPARISON: CT CLINICAL HISTORY: N20.1, N13.2. H/O left renal stones, pt states bladder discomfort EXAM MEASUREMENTS: Right Kidney: 10.6 x 5.2 x 5.1 cm Left Kidney: 11.0 x 5.0 x 4.3 cm Right Kidney: Appeared wnl Left Kidney: Appeared wnl Bladder: wnl Bilateral Jets seen: Yes There is no evidence for hydronephrosis at this point in time. No nephrolithiasis is seen. No donald s are identified. The urinary bladder is anechoic. Bilateral ureteral jets are seen. IMPRESSION: No distinct appreciated.
--- NOTE | 2020-07-05 15:08 | XR ---
EXAMINATION TYPE: XR KUB DATE OF EXAM: 07/05/2020 HISTORY: Pain Comparison: None.Single KUB is submitted for interpretation. Findings: Right renal calculi: None Visualized. Right ureteral calculi: None Visualized. Left renal calculi: None Visualized. Left ureteral calculi: None Visualized. Pelvic calcifications: Pelvic phleboliths noted. Bowel gas pattern is unremarkable. No free air. No mass effects. IMPRESSION: 1. No definite calculi seen with certainty.
== END | disposition home or self-care (01) ==
LOC: RADUSWWP 14:17
PROVIDERS: ATTEND Urology
DX: N13.2 Hydronephrosis with renal and ureteral calculous obstruction (principal); Z88.5 Allergy status to narcotic agent
CPT/HCPCS: 74018; 76770

== ENCOUNTER → 2021-01-11 | Outpatient (CLI) | payer MEDICARE ==
--- NOTE | 2021-01-11 12:48 | XR ---
EXAMINATION TYPE: XR KUB DATE OF EXAM: 01/11/2021 10:34 AM CLINICAL HISTORY: Lower abdominal pain for 2 days. History of kidney stones. TECHNIQUE: Single supine KUB image of the abdomen is obtained. COMPARISON: 07/05/2020. FINDINGS: Nonspecific, nonobstructive bowel gas pattern. Stool and gas are seen to the level of the r ectum. Right hip prosthesis. No definite evidence of renal or ureteral calculi. IMPRESSION: 1. No definite evidence of renal or ureteral calculi.
== END | disposition home or self-care (01) ==
LOC: RADXRMAIN 10:17
PROVIDERS: ATTEND Urology
DX: R10.30 Lower abdominal pain, unspecified (principal); Z87.442 Personal history of urinary calculi
CPT/HCPCS: 74018

== ENCOUNTER → 2021-10-03 | Outpatient (CLI) | payer MEDICARE | END | disposition home or self-care (01) | LOC: RADUSWWP 07:45 | PROVIDERS: ATTEND Family Medicine | DX: I73.9 Peripheral vascular disease, unspecified (principal) | CPT/HCPCS: 93922 ==

== ENCOUNTER → 2021-10-12 | Outpatient (CLI) | payer MEDICARE ==
--- NOTE | 2021-10-12 13:33 | XR ---
EXAMINATION TYPE: XR lumbosacral spine min 4V DATE OF EXAM: 10/12/2021 CLINICAL HISTORY: pain COMPARISON: NONE TECHNIQUE: Frontal, lateral, and oblique images of the lumbar spine are obtained. FINDINGS: There are 5 lumbar type vertebral bodies identified. The lumbar spine shows satisfactory alignment without evidence of acute fracture or dislocation. Vertebral body heights are within normal limits. Moderate multilevel degenerative disc space narrowing. Grade 1 anterolisthesis L4 on L5 russel uring 7.3 mm. The overlying soft tissue appears unremarkable. IMPRESSION: No acute fracture or dislocation is seen in the lumbar spine.ICD 10 NO FRACTURE, INITIAL EVALUATION
== END | disposition home or self-care (01) ==
LOC: RADXRMAIN 12:37
PROVIDERS: ATTEND Family Medicine
DX: M54.50 Low back pain, unspecified (principal)
CPT/HCPCS: 72110

== ENCOUNTER → 2022-05-31 | Outpatient (CLI) | payer MEDICARE ==
--- NOTE | 2022-05-31 16:46 | MR ---
EXAMINATION TYPE: MR lumbar spine wo con DATE OF EXAM: 05/31/2022 COMPARISON: None HISTORY: Lower back pain, right side, x 4 years. CONTRAST: 0 mL intravenous Gadavist. TECHNIQUE: Multiplanar, multisequence images of the lumbar spine were acquired. FINDINGS: Cord terminates at the T12-L1 level. Disc heights are preserved. Disc desiccation is prese nt through the lumbar spine. L5-S1: No significant disc bulge or disc herniation. No spinal canal stenosis. No foraminal stenosi s. Facet hypertrophy is present. L4-L5: Spondylolisthesis of L4 anteriorly on L5 is present with mild disc uncovering. Facet hypertrop hy and posterior thecal sac compression is present. Ligament flavum laxity is present. Some lateral c anal stenosis is present. Spinal canal narrowing is present. L3-L4: No significant disc bulge or disc herniation. No spinal canal stenosis. No foraminal stenosi s. There is mild facet hypertrophy and ligamentum flavum laxity with posterior lateral thecal sac con tact. No stenosis. L2-L3: No significant disc bulge or disc herniation. No spinal canal stenosis. No foraminal stenosi s. Mild facet hypertrophy and ligamentum flavum laxity is posterior lateral thecal sac compression. No spinal canal stenosis. L1-L2: No significant disc bulge or disc herniation. No spinal canal stenosis. No foraminal stenosi s. Ligamentum flavum laxity and mild facet hypertrophy is posterior lateral thecal sac compression. No spinal canal stenosis. T12-L1: No significant disc bulge or disc herniation. No spinal canal stenosis. No foraminal stenos is. IMPRESSION: 1. Spinal canal stenosis L4-5 secondary to disc uncovering with facet hypertrophy and ligamentum flav um laxity. This is greatest in the lateral dimension due to facet hypertrophy and ligamentum flavum l axity. 2. Multilevel facet hypertrophy with ligamentum flavum laxity with posterior lateral thecal sac conta ct discussed above.
== END | disposition home or self-care (01) ==
LOC: RADMRIMAIN 11:07
PROVIDERS: ATTEND Nurse Practitioner Family
DX: M48.061 Spinal stenosis, lumbar region without neurogenic claudication (principal); M47.816 Spondylosis without myelopathy or radiculopathy, lumbar region; M51.36 Other intervertebral disc degeneration, lumbar region
CPT/HCPCS: 72148

== ENCOUNTER → 2024-05-14 | Outpatient (CLI) | payer MEDICARE ==
--- NOTE | 2024-05-14 13:27 | CT ---
EXAMINATION TYPE: CT brain wo con CT DLP: 1207 mGycm, Automated exposure control for dose reduction was used. DATE OF EXAM: 05/14/2024 1:09 PM COMPARISON: None. CLINICAL INDICATION:Female, 74 years old with history of R55 SYNCOPE AND COLLAPSE, SYNCOPE AND FAINTE D X1 TECHNIQUE: Brain: Multiple axial CT images of the brain were obtained without IV contrast. . Coronal and sagitta l reformats reviewed. FINDINGS: Brain: Extra-axial spaces: No abnormal extra-axial fluid collections. Ventricular system: Within normal limits Cerebral parenchyma: No acute intraparenchymal hemorrhage or mass effect. The holguin-white junction is well differentiated. Scattered hypoattenuating areas are seen within the periventricular white matte r. Nonspecific bilateral basal ganglia calcifications. Cerebellum: Unremarkable. Mass effect: No evidence of midline shift. Intracranial vasculature: Atherosclerotic calcifications of the intracranial vessels. Soft tissues: Normal. Calvarium/osseous structures: No depressed skull fracture. Paranasal sinuses and mastoid air cells: Clear Visualized orbits: Orbital contents are intact. IMPRESSION: No acute intracranial process. [facility], , 05/14/2024 1:24 PM
== END | disposition home or self-care (01) ==
LOC: RADCTMAIN 12:40
PROVIDERS: ATTEND Family Medicine
DX: R55 Syncope and collapse (principal)
CPT/HCPCS: 70450

== ENCOUNTER → 2024-06-28 | Outpatient (CLI) | payer MEDICARE ==
--- NOTE | 2024-06-28 11:58 | CA ---
Exercise Stress Test Report Name: Snehal Plunkett Exam Date: 06/28/2024 09:21 Exam Location: [place] Stress Ht (in): 67 Wt (lb): 159 BSA: 1.83 Ordering Phys: Chace Maurer DO Referring Phys: Chace Maurer DO Technologist: Sanchez De La Torre Age: 74 Gender: F : 1950 Procedure CPT: Indications: R55 SYNCOPE AND COLLAPSE ICD-10 Codes: Patient History: Medications: Meds past 24 hrs: Pretest Chest Pain: STRESS TEST Juan C Protocol Exercise Duration (min:sec): 04:[address] Depressions (mm): Angina Score: Andres Score: Resting HR (bpm): 83 Peak HR (bpm): 135 Resting BP (mmHg): 140 / 83 Peak BP (mmHg): 208 / 79 MPHR: 147 Target HR: 125 % MPHR: 92 METS: 6.5 Total Dose: Peak Dose: Atropine: Double Product: 20434 BP Response: Stress Termination: TARGET HR REACHED/MAX EXERTION Stress Symptoms: DIFFICULTY IN BREATHING Stress Summary: ECG ANALYSIS Resting ECG: Stress ECG: CONCLUSIONS Excellent exercise tolerance Normal electrocardiogram stress test Dr. Roly Glez MD (Electronically Signed) Final Date: 28 June 2024 11:57
--- NOTE | 2024-06-28 12:01 | CA ---
Transthoracic Echo Report Name: Snehal Plunkett Age: 74 Gender: F : 1950 Exam Date: 06/28/2024 08:36 Exam Location: [place] Echo Ht (in): 67 Wt (lb): 159 Ordering Physician: Chace Maurer DO Attending/Referring Phys: Chace Maurer DO Drawing Kiln Operator Pavithra Jack RDCS Procedure CPT: Indications: R55 SYNCOPE AND COLLAPSE Cardiac Hx: Technical Quality: Good Contrast 1: Total Dose (mL): Contrast 2: Total Dose (mL): MEASUREMENTS (Male / Female) Normal Values 2D ECHO LV Diastolic Diameter PLAX 4.6 cm 4.2 - 5.9 / 3.9 - 5.3 cm LV Systolic Diameter PLAX 3.1 cm IVS Diastolic Thickness 1.1 cm 0.6 - 1.0 / 0.6 - 0.9 cm LVPW Diastolic Thickness 1.2 cm 0.6 - 1.0 / 0.6 - 0.9 cm LV Relative Wall Thickness 0.5 RV Internal Dim ED PLAX 3.1 cm LA Systolic Diameter LX 3.2 cm 3.0 - 4.0 / 2.7 - 3.8 cm LV Diastolic Volume MOD 4C 74.6 cm??? LV Systolic Volume MOD 4C 30.9 cm??? LV Ejection Fraction MOD 4C 58.6 % LV Cardiac Index MOD 4C 1718.8 cm???/min???m??? LV Diastolic Length 4C 6.0 cm LV Systolic Length 4C 4.9 cm LV Diastolic Volume MOD 2C 36.8 cm??? LV Systolic Volume MOD 2C 13.2 cm??? LV Ejection Fraction MOD 2C 64.3 % LV Cardiac Index MOD 2C 930.6 cm???/min???m??? LV Diastolic Length 2C 5.2 cm LV Systolic Length 2C 4.5 cm LA Volume 34.6 cm??? 18 - 58 / 22 - 52 cm??? LA Volume Index 18.6 cm???/m??? 16 - 28 cm???/m??? M-MODE Aortic Root Diameter MM 3.5 cm AV Cusp Separation MM 1.4 cm DOPPLER AV Peak Velocity 142.3 cm/s AV Peak Gradient 8.1 mmHg MV Area PHT 2.8 cm??? Mitral E Point Velocity 97.2 cm/s Mitral A Point Velocity 132.2 cm/s Mitral E to A Ratio 0.7 MV Deceleration Time 266.4 ms TR Peak Velocity 204.3 cm/s TR Peak Gradient 16.7 mmHg Right Ventricular Systolic Press 21.7 mmHg FINDINGS Left Ventricle Left ventricular ejection fraction is estimated at 55-60 %. Left ventricular cavity size normal. Mildly increased septal wall thickness. Mildly increased posterior wall thickness. Normal left ventricular wall motion. Right Ventricle Normal right ventricular size and function. Normal right ventricular size and function. Right Atrium Normal right atrial size. No spontaneous contrast in the right atrium. Left Atrium Normal left atrial size. No left atrial thrombus or mass present. Mitral Valve Mitral valve thickened. Mild mitral annular calcification. No mitral stenosis, regurgitation or prolapse. Aortic Valve Trileaflet aortic valve. No aortic stenosis. Trace aortic regurgitation. Tricuspid Valve Structurally normal tricuspid valve. Trace to mild tricuspid regurgitation. Pulmonic Valve Structurally normal pulmonic valve. Trace pulmonic regurgitation. Pericardium No pericardial or pleural effusion. Aorta Normal size aortic root and proximal ascending aorta. CONCLUSIONS Normal LV systolic function No significant valvular abnormalities noted Trace pericardial effusion seen Previewed by: Dr. Roly Glez MD (Electronically Signed) Final Date: 28 June 2024 12:00
== END | disposition home or self-care (01) ==
LOC: RADECHMAIN 08:24
PROVIDERS: ATTEND Family Medicine
DX: I31.39 Other pericardial effusion (noninflammatory) (principal); I34.81 Nonrheumatic mitral (valve) annulus calcification; I35.1 Nonrheumatic aortic (valve) insufficiency; I37.1 Nonrheumatic pulmonary valve insufficiency; I07.1 Rheumatic tricuspid insufficiency; R55 Syncope and collapse
CPT/HCPCS: 93017; 93306

== ENCOUNTER → 2025-01-03 | Outpatient (CLI) | payer MEDICARE ==
--- NOTE | 2025-02-04 05:06 | EM ---
EVENT MONITOR STUDY PERFORMED: Event monitor. The patient was monitored between the 03 of January and the January. Baseline rhythm is sinus mechanism with episode of paroxysmal atrial fibrillation with pauses up to 6.7 seconds. Ventricular ectopic burden was less than 1%. Atrial fibrillation burden was 2%. No symptoms were reported. MMODL / IJN: [id number] /
== END | disposition home or self-care (01) ==
LOC: RADECHMAIN 08:01
PROVIDERS: ATTEND Family Medicine
DX: I48.0 Paroxysmal atrial fibrillation (principal); R00.2 Palpitations
CPT/HCPCS: 93270